=== PATIENT | female | born 1950 | race Caucasian/White ===

== ENCOUNTER 2022-06-12 11:25 | Emergency (ER) | payer MEDICARE, SELFPAY ==
[2022-06-12] VITALS (11 sets, daily range): BP systolic 132–152; BP diastolic 70–80; PULSE 55–74; RESP 12–18; TEMP 36.3–36.5; O2SAT 97–100
--- NOTE | ~2022-06-12 | CT_ITS ---
EXAMINATION: CT thoracic lumbar wo con DATE: 06/12/2022 13:08 INDICATION: Back pain post fall TECHNIQUE: Computed tomography (CT) of the thoracic and lumbar spine was performed without intravenou s contrast. Automated exposure control and iterative reconstruction technique were employed. The dose -length product was 1159.80 mGy-cm. COMPARISON: None FINDINGS: Thoracic spine: 35 degrees thoracic dextroscoliosis. Acute appearing T11 burst fracture with one third anterior verte bral body height loss and 4-5 mm right paracentral retropulsion which results in mild central canal s tenosis at this level. Remaining thoracic vertebral body heights are normal. Multilevel mild disc hei ght loss throughout the majority of the lobes in the thoracic spine. Multilevel mild to moderate thor acic facet osteoarthritis. This contributes to mild neural foraminal stenosis at multiple levels prim arily on the right side of the upper thoracic spine and left side of the mid to upper thoracic spine. Mild dependent atelectasis in the lungs. Calcified left upper lobe nodule consistent with old granul omatous disease. No pleural effusion. Thoracic aorta is normal in caliber. Lumbar spine: 25 degrees lumbar levoscoliosis. 2 mm retrolisthesis L1 on L2 and 5 mm anterolisthesis L4 on L5. Vert ebral body heights are normal. No acute fracture. Mild to moderate right-sided disc height loss at T1 2-L1, mild to severe right-sided disc height loss at L1-L2 and left-sided disc height loss at L4-L5. Mild right-sided disc height loss at L2-L3. Mild bilateral sacroiliac osteoarthritis. 1.7 cm cyst in the right hepatic lobe and 3.4 cm left renal cyst. Moderate sigmoid diverticulosis. Paravertebral sof t tissues are otherwise unremarkable. The following disc levels are specifically discussed: T12-L1: Disc is moderately bulging. There is mild bilateral facet joint osteoarthritis. There is no n eural foraminal stenosis. There is mild central canal stenosis. L1-L2: Disc is mildly bulging. There is mild bilateral facet joint osteoarthritis. There is mild to m oderate right neural foraminal stenosis. There is mild central canal stenosis. L2-L3: Disc is moderately bulging. There is mild bilateral facet joint osteoarthritis. There is no ne ural foraminal stenosis. There is mild central canal stenosis. L3-L4: Disc is mildly bulging. There is mild right and mild to moderate left facet joint osteoarthrit is. There is mild bilateral neural foraminal stenosis. There is mild central canal stenosis. L4-L5: Disc is bulging. There is hypertrophy of the ligamentum flavum. There is severe bilateral face t joint osteoarthritis. There is moderate left and mild to moderate right neural foraminal stenosis. There is moderate central canal stenosis. L5-S1: Disc is mildly bulging. There is moderate to severe left and severe right facet joint osteoart hritis. There is no neural foraminal stenosis. There is no central canal stenosis. IMPRESSION: 1. Acute T11 burst fracture with one third anterior vertebral body height loss and 5 mm retropulsion. 2. S-shaped thoracolumbar scoliosis with mild cervical and moderate lumbar spondylosis. Reviewed, dictated and finalized at location A. IMPRESSION: 1. Acute T11 burst fracture with one third anterior vertebral body height loss and 5 mm retropulsion. 2. S-shaped thoracolumbar scoliosis with mild cervical and moderate lumbar spon dylosis.
--- NOTE | ~2022-06-12 | CT_ITS ---
EXAMINATION: CT brain wo con DATE: 06/12/2022 13:07 INDICATION: Head injury post fall TECHNIQUE: Computed tomography (CT) of the head was performed without intravenous contrast. Sagittal and coronal reconstructions were performed. The mA was adjusted according to patient size. Iterative reconstruction technique was employed. The dose-length product was 681.00 mGy-cm. COMPARISON: None FINDINGS: Left occipital scalp hematoma. No fracture. No acute intracranial hemorrhage, acute infarction or abn ormal extra axial fluid collection. Symmetric prominence of the sulci and subarachnoid spaces overlyi ng the convexities consistent with mild age-appropriate diffuse cerebral volume loss. Ventricles are normal and symmetric. No mass/mass effect. The orbits, paranasal sinuses and mastoid air cells are n ormal. IMPRESSION: 1. No fracture or acute intracranial process. Reviewed, dictated and finalized at location A.
--- NOTE | ~2022-06-12 | CT_ITS ---
EXAMINATION: CT cervical spine wo con DATE: 06/12/2022 13:07 INDICATION: Fall with head injury TECHNIQUE: Computed tomography (CT) of the cervical spine was performed without intravenous contrast. Automated exposure control and iterative reconstruction technique were employed. The dose-length pro duct was 174.85 mGy-cm. COMPARISON: None FINDINGS: 12 degree cervicothoracic dextrocurvature. Slight reversal of the normal cervical lordosis. Vertebral body heights are normal. No fracture. Moderate disc height loss at C5-C6 and mild disc height loss a t C4-C5 and C6-C7. Likely benign subcentimeter right thyroid nodule with coarse calcification. Cervic al soft tissues are otherwise unremarkable. Calcified left apical nodule consistent with old granulom atous disease. The following disc levels are specifically discussed: C2-C3: Disc is mildly bulging. There is mild bilateral uncovertebral joint osteoarthritis. There is m oderate right and severe left facet joint osteoarthritis. There is no neural foraminal stenosis. Ther e is no central canal stenosis. C3-C4: The disc does not extend beyond the endplate margin. There is mild bilateral uncovertebral agustina nt osteoarthritis. There is moderate bilateral facet joint osteoarthritis. There is no neural foramin al stenosis. There is no central canal stenosis. C4-C5: The disc does not extend beyond the endplate margin. There is mild bilateral uncovertebral agustina nt osteoarthritis. There is moderate bilateral facet joint osteoarthritis. There is no neural foramin al stenosis. There is no central canal stenosis. C5-C6: The disc does not extend beyond the endplate margin. There is mild right and severe left uncov ertebral joint osteoarthritis. There is mild left and mild to moderate right facet joint osteoarthrit is. There is mild left neural foraminal stenosis. There is no central canal stenosis. C6-C7: The disc does not extend beyond the endplate margin. Small left paracentral endplate osteophyt es. There is mild right and moderate left uncovertebral joint osteoarthritis. There is mild bilateral facet joint osteoarthritis. There is mild left neural foraminal stenosis. There is minimal central c anal stenosis. C7-T1: The disc does not extend beyond the endplate margin. There is mild bilateral uncovertebral agustina nt osteoarthritis. There is mild to moderate right and severe left facet joint osteoarthritis. There is mild left neural foraminal stenosis. There is no central canal stenosis. IMPRESSION: 1. Mild to moderate cervical spondylosis. No acute osseous abnormality. Reviewed, dictated and finalized at location A.
--- NOTE | 2022-06-12 12:45 | ED.FALL ---
HPI - Fall General Chief Complaint: Fall Stated Complaint: fell 4 feet off a ladder, back pain Time Seen by Provider: 06/12/22 12:29 History of Present Illness HPI Narrative: 71-year-old female presents to the emergency room for evaluation of injury sustained from a 4 foot fall. Patient states that she was approximately 3 to 4 feet from a ladder. When she began to step off the ladder, she lost her balance and fell backwards. Patient states that she struck the back of her head in the middle of her back. Was ambulatory following the injury. Denies any loss of consciousness altered mental status, nausea vomiting, visual or hearing changes, or somnolence. Patient denies any other injuries. Related Data Allergies Allergy/AdvReac Type Severity Reaction Status Date / Time erythromycin base Allergy Unknown Verified 06/12/22 12:39 Review of Systems Review of Systems: CONSTITUTIONAL: Denies fever, chills, or sweats. EYES: Denies visual changes, redness, or discharge. ENT: Denies rhinorrhea, congestion, sore throat, or otalgia. CARDIOVASCULAR: Denies chest pain, palpitations, or edema. RESPIRATORY: Denies cough or dyspnea. GASTROINTESTINAL: Denies abdominal pain, nausea, vomiting, or diarrhea. GENITOURINARY: Denies dysuria or hematuria. SKIN: Denies rash or itching. MUSCULOSKELETAL: Reports head, neck, mid back and low back pain NEUROLOGIC: Denies headache, numbness, dizziness, or weakness. PSYCHIATRIC: Denies anxiety or depression. Exam Narrative: GENERAL: Well-appearing, well-nourished, no physical limitations, and in no acute distress. HEAD: Normocephalic, hematoma to the posterior scalp EYES: Conjunctivae normal, PERRLA and EOMI. ENT: External nose normal, Nares clear, no rhinorrhea or epistaxis. Mucous membranes moist. Oropharynx without tonsillar hypertrophy exudate or other lesions. External ears normal, bilateral TMs normal bilaterally NECK: Supple. No meningeal signs. No adenopathy or masses. No carotid bruits or JVD CHEST: Clear to auscultation. No respiratory distress. No wheezes rales or rhonchi. No tenderness. HEART: Regular rate and rhythm. No murmur heard. Normal peripheral pulses. ABDOMEN: Soft, nontender, nondistended, normal active bowel sounds. BACK: Midline cervical/thoracic/lumbar tenderness, no step-offs, no bony abnormality; c-collar in place EXTREMITIES: Normal range of motion. No edema. No clubbing or cyanosis SKIN: Warm, dry, no rash. No noted wounds NEURO: No focal deficits. Alert and oriented x3. MAEW. CN's II-XI intact bilaterally PSYCH: Cooperative. Normal mood and affect. Course Course Emergency Course: 1430: Discussed case with neurosurgery MD Sanches. He is arranging for the patient to get a TLSO brace prior to discharge. Will have patient follow-up with him in his office this week. Vital Signs Vital signs: Vital Signs Temperature 36.5 C 06/12/22 11:43 Pulse Rate 61 06/12/22 11:43 Respiratory Rate 18 06/12/22 11:43 Blood Pressure 152/72 H 06/12/22 11:43 Pulse Oximetry 98 06/12/22 11:43 Oxygen Delivery Room Air 06/12/22 11:43 Temperature 36.5 C 06/12/22 11:43 Pulse Rate 55 L 06/12/22 15:12 Respiratory Rate 16 06/12/22 15:12 Blood Pressure 132/70 06/12/22 15:12 Pulse Oximetry 98 06/12/22 15:12 Oxygen Delivery Room Air 06/12/22 11:43 MDM - Fall MDM Narrative Medical decision making narrative: 71-year-old female sent to the emergency room for injuries sustained from a fall from a ladder. CT of the thoracic spine showed a burst fracture for T11. Discussed the case with neurosurgery Dr. Sanches. He recommends having the patient follow-up with him in his office this week. We will send patient home with a prescription for hydrocodone for pain management. Imaging Data Radiologist's impression: Impressions Head CT 06/12/22 13:11 IMPRESSION: 1. No fracture or acute intracranial process. Cervical Spine CT 06/12/22 13:14 IMPRESSION:
--- NOTE | 2022-06-12 12:46 | PC.NURSE ---
Patient to CT
[2022-06-12] MEDS: KETOROLAC (*BKC) 60 MG/2 ML VIAL IM (13:17)
[2022-06-12] MEDS: HYDROmorphone HCL INJ (*CRX) 1 MG/ML SYR IM (14:53)
--- NOTE | 2022-06-12 16:12 | PC.NURSE ---
Addendum entered by Brittany Gregory RN 06/12/22 16:13: gait was slow but steady with ambulation Original Note: Braden Major from [facility], [place] here to apply back brace. After application pt ambulated to bathroom with sand by assist then ambulated back without assistance.
== END 2022-06-12 16:30 | disposition home or self-care (01) ==
PROVIDERS: Emergency Provider Nurse Practitioner Family
DX: S22.081A Stable burst fracture of T11-T12 vertebra, initial encounter for closed fracture (principal); W11.XXXA Fall on and from ladder, initial encounter
CPT/HCPCS: 70450; 72125; 72128; 72131; 96372; 99284; J1170; J1885

== ENCOUNTER 2022-08-09 11:31 | Outpatient (CLI) | payer MEDICARE, SELFPAY ==
--- NOTE | ~2022-08-09 | XR_ITS ---
EXAMINATION: XR thoracic spine 2V DATE: 08/09/2022 11:59 INDICATION: History of thoracic spine fracture TECHNIQUE: AP, lateral and lateral swimmer's views of the thoracic spine were obtained. COMPARISON: CT, 06/12/2022 FINDINGS: There are 30 degrees of lumbar dextroscoliosis and 25 degrees of thoracolumbar levoscoliosi s. There is a T11 burst fracture with worsened interval loss of vertebral body height. No additional fracture is identified. Bone alignment is normal. There is moderate loss of intervertebral disc space height at multiple levels throughout the thoracic spine. IMPRESSION: 1. T11 burst fracture with worsened interval loss of vertebral body height. 2. Moderate thoracic spondylosis. Reviewed, dictated and finalized at location B. AIN ENGINEER
== END 2022-08-09 11:32 | disposition home or self-care (01) ==
LOC: ANHIMG 11:36
PROVIDERS: Visit Provider Neurological Surgery
DX: S22.081A Stable burst fracture of T11-T12 vertebra, initial encounter for closed fracture (principal); X58.XXXA Exposure to other specified factors, initial encounter; M47.894 Other spondylosis, thoracic region
CPT/HCPCS: 72070

== ENCOUNTER 2022-10-02 13:45 | Outpatient (CLI) | payer MEDICARE, SELFPAY ==
--- NOTE | ~2022-10-02 | XR_ITS ---
EXAM: XR lumbar spine 2-3V DATE: 10/02/2022 14:07 HISTORY: M54.50 - Low back pain, unspecified FU COMPARISON TO PRIOR . COMPARISON: CT thoracic and lumbar spine 06/12/2022. FINDINGS: Vertebral plana at T11. Lumbar scoliosis. Exaggerated lumbar lordosis. 6 mm anterolisthesis at L4-5. 5 nonrib-bearing lumbar-type vertebral bodies. Pedicles intact. Lumbar vertebral body heigh ts preserved. Multilevel mild disc space narrowing and marginal osteophytosis. Multilevel severe face t sclerosis and hypertrophy with interspinous narrowing. No acute fracture or dislocation. IMPRESSION: Progressive, now severe height loss at T11. Stable grade 1 anterolisthesis at L4-5. Sever e multilevel facet arthropathy. Reviewed, dictated and finalized at location K. K REPAIRER IMPRESSION: Progressive, now severe height loss at T11. Stable grade 1 anteroli sthesis at L4-5. Severe multilevel facet arthropathy.
== END 2022-10-02 13:46 | disposition home or self-care (01) ==
LOC: ANHIMG 13:54
PROVIDERS: Visit Provider Neurological Surgery
DX: M54.50 Low back pain, unspecified (principal); R29.890 Loss of height
CPT/HCPCS: 72100